=== PATIENT | male | born 1995 | race Two or more races ===

== ENCOUNTER 2018-11-13 15:09 | Emergency (ER) | payer BC ==
[2018-11-13 15:27] VITALS: BP 127/77; PULSE 85; TEMP 99.1; BMI 26.2
--- NOTE | 2018-11-13 15:29 | PDOC ---
Rapid Medical Evaluation Time Seen by Provider: 11/13/18 15:22 Medical Evaluation: Allergies Allergy/AdvReac Type Severity Reaction Status Date / Time No Known Allergies Allergy Verified 01/02/14 19:17 11/13/18 15:23 I have performed a brief in-person evaluation of this patient. The patient presents with a chief complaint of: rectal pain/swelling following receptive anal sex 3 days ago, sexually active w/ males only. No sig pmhx Pertinent physical exam findings:stable I have ordered the following:nothing The patient will proceed to the ED for further evaluation. Discharge Disposition - Diagnosis Rectal pain - Referrals - Patient Instructions - Post Discharge Activity
--- NOTE | 2018-11-13 15:55 | PDOC ---
History of Present Illness - General Chief Complaint: Hemorrhoids Stated Complaint: RECTUM BLEEDING Time Seen by Provider: 11/13/18 15:22 - History of Present Illness Initial Comments: 11/13/18 15:53 23-year-old male without comorbidities presents for evaluation of rectal pain after anal sex with another male 4 days ago. Past History - Past Medical History Allergies/Adverse Reactions: Allergies Allergy/AdvReac Type Severity Reaction Status Date / Time No Known Allergies Allergy Verified 11/13/18 15:24 Home Medications: Ambulatory Orders No Home Medications 0 dose .ROUTE UTDICT 01/02/14 Hydrocortisone Acetate [Anusol Hc Suppository -] 25 mg RC BID #28 supp.rect COPD: No Thyroid Disease: No - Immunization History Immunization Up to Date: Yes - Suicide/Smoking/Psychosocial Hx Smoking History: Never smoked Information on smoking cessation initiated: No Hx Alcohol Use: No Drug/Substance Use Hx: No Review of Systems - Review of Systems ABD/GI: Yes: See HPI *Physical Exam - Vital Signs Last Vital Signs Temp Pulse Resp BP Pulse Ox 99.1 F 85 16 127/77 99 11/13/18 15:24 11/13/18 15:24 11/13/18 15:24 11/13/18 15:24 11/13/18 15:24 - Physical Exam Comments: 11/13/18 15:53 Rectal exam grossly performed. There is a hemorrhoid at the 12 o'clock position without indication of fissures or abrasions. Digital exam not performed Medical Decision Making - Medical Decision Making 11/13/18 15:54 Discussed abstinence from anal sex follow-up with GI in the use of Anusol hydrocortisone suppositories *DC/Admit/Observation/Transfer Diagnosis at time of Disposition: Rectal pain, Acute hemorrhoid - Discharge Dispostion Disposition: HOME Condition at time of disposition: Stable Decision to Admit order: No - Prescriptions Prescriptions: Hydrocortisone Acetate [Anusol Hc Suppository -] 25 mg RC BID #28 supp.rect - Referrals Referrals: Perez Salazar MD [Staff Physician] - - Patient Instructions Printed Discharge Instructions: DI for Hemorrhoids Additional Instructions: Please use a hemorrhoidal suppositories as directed twice a day and follow-up with gastroenterology in one to 2 days for further evaluation and treatment options. Abstain from anal sex until cleared by gastroenterology and return to the emergency room should symptoms worsen - Post Discharge Activity
== END 2018-11-13 16:10 | disposition home or self-care (01) ==
LOC: JERFT 15:09
DX: K62.89 Other specified diseases of anus and rectum (principal); K64.9 Unspecified hemorrhoids
CPT/HCPCS: 99281-25

== ENCOUNTER 2018-12-06 11:26 | Emergency (ER) | payer BC ==
[2018-12-06 11:44] VITALS: BP 114/66; PULSE 72; TEMP 97.2; BMI 25.0
--- NOTE | 2018-12-06 12:41 | PDOC ---
History of Present Illness - General Chief Complaint: Hemorrhoids Stated Complaint: REMOVAL OF HEMORRHOIDS Time Seen by Provider: 12/06/18 12:11 History Source: Patient Exam Limitations: No Limitations - History of Present Illness Initial Comments: Patient is a 23-year-old male who has a history of hemorrhoids who states that he was evaluated the end of October and was given Anusol and his hemorrhoids disappeared. However he states that they have returned x 2 days. He is requesting Anusol. Patient denies hematochezia. He denies history of constipation. Patient denies any aggravating or relieving factors. 12/06/18 12:38 Past History - Travel Traveled outside of the country in the last 30 days: No Close contact w/someone who was outside of country & ill: No - Past Medical History Allergies/Adverse Reactions: Allergies Allergy/AdvReac Type Severity Reaction Status Date / Time No Known Allergies Allergy Verified 12/06/18 11:39 Home Medications: Ambulatory Orders Hydrocortisone Acetate [Anusol Hc Suppository -] 25 mg RC BID #28 supp.rect COPD: No Thyroid Disease: No - Immunization History Immunization Up to Date: Yes - Suicide/Smoking/Psychosocial Hx Smoking History: Never smoked Information on smoking cessation initiated: No Hx Alcohol Use: No Drug/Substance Use Hx: No Review of Systems - Review of Systems Constitutional: No: Chills, Fever Respiratory: No: Cough Cardiac (ROS): No: Chest Pain ABD/GI: No: Abdominal Distended, Blood Streaked Bowels, Constipated, Diarrhea, Abdominal cramping *Physical Exam - Vital Signs Last Vital Signs Temp Pulse Resp BP Pulse Ox 97.2 F L 72 17 114/66 98 12/06/18 11:39 12/06/18 11:39 12/06/18 11:39 12/06/18 11:39 12/06/18 11:39 - Physical Exam Comments: Constitutional: VS stated, pt appears in no apparent distress; sitting in chair. Skin: Warm and dry. Intact, no lesions or excoriations. Head: Normocephalic; atraumatic Eyes: conjunctiva pink without injection or discharge. Throat: Oropharynx with pink and moist mucos Lungs: Bilateral breath sounds clear upon auscultation. Heart: Regular rate and rhythm, S1/S2 auscultated. Abdomen: Soft and non-tender. Bowel sounds present in all 4 quadrants, no hepatosplenomegaly, No bruits auscultated. Musculoskeletal: Moves all extremities without difficulty. Neurologic: Awake, alert. Conversation fluent Rectal: 1.5 cm hemorrhoid TEJA Edouard was my motorman/woman during the rectal exam 12/06/18 12:40 *DC/Admit/Observation/Transfer Diagnosis at time of Disposition: Hemorrhoid Qualifiers: Hemorrhoid type: first degree Qualified Code(s): K64.0 - First degree hemorrhoids - Discharge Dispostion Disposition: HOME Condition at time of disposition: Good - Prescriptions Prescriptions: Hydrocortisone Acetate [Anusol Hc Suppository -] 25 mg RC BID #28 supp.rect - Referrals Referrals: Norma Mir MD [Primary Care Provider] - Eric Bass MD [Staff Physician] - - Patient Instructions - Post Discharge Activity
== END 2018-12-06 13:15 | disposition home or self-care (01) ==
LOC: JERFT 11:26
DX: K64.0 First degree hemorrhoids (principal)
CPT/HCPCS: 99281-25

== ENCOUNTER 2020-12-12 17:57 | Emergency (ER) | payer BC ==
[2020-12-12 18:07] VITALS: BP 126/72; PULSE 112; TEMP 102.4; BMI 22.7
[2020-12-12] MEDS ORDERED: ACETAMINOPHEN 500 MG TABLET (FP) PO ONE (18:28)
[2020-12-12] MEDS ORDERED: ACETAMINOPHEN 500 MG TABLET (FP) ONE (18:29)
[2020-12-12] MEDS ORDERED: DEXAMETHASONE LIQUID 0.5 MG/5 ML PO ONE (18:48)
[2020-12-12] MEDS ORDERED: DEXAMETHASONE SOD PHOSPHATE 10 MG/1 ML VIAL ONE (18:48)
== END 2020-12-12 19:02 | disposition home or self-care (01) ==
LOC: JER 17:57
DX: U07.1 COVID-19 (principal); J03.90 Acute tonsillitis, unspecified; J02.9 Acute pharyngitis, unspecified
CPT/HCPCS: 99283-25

== ENCOUNTER 2021-09-05 06:36 | Observation (INO) | payer BC ==
[2021-09-05 08:27] LABS: BASO % 1.3 % (0-2.0); EOS % 8.3 % (0-4.5); HEMATOCRIT 26.8 % (35.4-49); LYMPH % 42.7 % (8-40); MCH 27.8 pg (25.7-33.7); MCHC 33.5 g/dl (32.0-35.9); MEAN CELL VOLUME 83.1 fl (80-96); MEAN PLT VOLUME 6.6 fl (7.5-11.1); MONO % 9.7 % (3.8-10.2); PLATELET COUNT 55 10^3/uL (134-434); RBC 3.22 M/mm3 (4.00-5.60)
[2021-09-05 09:13] LABS: CHLORIDE 115 mmol/L (98-107); SODIUM 139 mmol/L (136-145)
[2021-09-05 09:15] LABS: ANION GAP 5 MMOL/L (8-16); BLOOD UREA NITROGEN 11.3 mg/dL (7-18); CO2 19 mmol/L (21-32); GLUCOSE,RANDOM 74 mg/dL (74-106)
[2021-09-05 09:18] LABS: CREATININE 0.7 mg/dL (0.55-1.3); SGOT/AST 13 U/L (15-37)
[2021-09-05 09:19] LABS: SGPT/ALT 9 U/L (13-61)
[2021-09-05 09:20] LABS: BILIRUBIN,TOTAL 0.2 mg/dL (0.2-1)
[2021-09-05 09:21] LABS: ALK PHOS 52 U/L (45-117)
[2021-09-05 09:28] LABS: CALCIUM 6.1 mg/dL (8.5-10.1); TOT PROT 7.4 g/dl (6.4-8.2)
[2021-09-05] MEDS ORDERED: CALCIUM GLUCONATE 10% - 1,000 MG/10 ML VIAL IVPUSH ONE (09:38)
[2021-09-05] MEDS ORDERED: POTASSIUM CHLORIDE TABS 20 MEQ TABLET.ER (FP) PO ONE ×2 (09:41→09:45)
[2021-09-05] MEDS ORDERED: CALCIUM GLUCONATE 10% - 1,000 MG/10 ML VIAL ONE (09:44)
[2021-09-05 09:49] LABS: EPI CELLS 3 /uL (0-25.1); HYALINE CASTS 1 /uL (0-3.1); PH,URINE 5.5 (5.0-8.0); URINE APPEARANCE CLEAR; URINE BILIRUBIN NEGATIVE (NEGATIVE); URINE COLOR YELLOW; URINE GLUCOSE (UA) NEGATIVE (NEGATIVE); URINE KETONE TRACE (NEGATIVE); URINE LEUK ESTERASE NEGATIVE (NEGATIVE); URINE NITRITE NEGATIVE (NEGATIVE); URINE PROTEIN TRACE (NEGATIVE); URINE UROBILINOGEN 0.2 mg/dL (0.2-1.0); URINE WBC 5 /uL (0-25.8)
[2021-09-05 09:51] LABS: URINE BACTERIA 6.1 /uL (0-1359)
[2021-09-05 09:58] LABS: MAGNESIUM 1.4 mg/dL (1.8-2.4)
[2021-09-05 10:02] LABS: PHOSPHOROUS 3.3 mg/dL (2.5-4.9)
[2021-09-05] MEDS ORDERED: MAGNESIUM SULF 50% (8.12 MEQ/2 ML-1 GM VIAL) IVPB ONE (10:22)
[2021-09-05] MEDS ORDERED: MAGNESIUM 1GM/D5W - 1 GM/100 ML IVPB IVPB ONE (10:50)
[2021-09-05 11:10] LABS: ANISOCYTOSIS 2+; MACROCYTOSIS 2+; PLATELET ESTIMATE DECREASED
[2021-09-05] MEDS ORDERED: ONDANSETRON 4 MG/2 ML VIAL IVPUSH PRN (15:37)
[2021-09-05] MEDS ORDERED: ACETAMINOPHEN 325 MG TABLET (FP) PO PRN (15:39)
[2021-09-05 20:58] VITALS: BMI 24.2
[2021-09-06] MEDS ORDERED: SULFAMETHOXAZOLE/TRIMETHOPRIM 800MG/160MG D.S. TABLET PO SCH (10:00)
[2021-09-06] MEDS: BICTEGRAV/EMTRICIT/TENOFOV (BIKTARVY) 50-200-25 MG TABLET PO SCH (10:26)
[2021-09-06 11:45] LABS: HEMATOCRIT 25.9 % (35.4-49); HEMOGLOBIN 8.8 GM/dL (11.7-16.9); MEAN CELL VOLUME 82.5 fl (80-96); MEAN PLT VOLUME 7.1 fl (7.5-11.1); PLATELET COUNT 50 10^3/uL (134-434); RBC 3.14 M/mm3 (4.00-5.60); WHITE BLOOD COUNT 3.5 K/mm3 (4.0-10.0)
[2021-09-06 12:10] LABS: BLOOD UREA NITROGEN 14.5 mg/dL (7-18)
[2021-09-06 12:13] LABS: BILIRUBIN,TOTAL 0.5 mg/dL (0.2-1); CREATININE 0.9 mg/dL (0.55-1.3); TOT PROT 9.2 g/dl (6.4-8.2)
[2021-09-06 12:15] LABS: ALBUMIN 2.5 g/dl (3.4-5.0); CALCIUM 8.2 mg/dL (8.5-10.1)
[2021-09-07] MEDS ORDERED: ATOVAQUONE 750 MG/5 ML (UNIT-DOSE PACKAGING) PO SCH (08:00)
[2021-09-07 09:31] LABS: BASO % 2.4 % (0-2.0); EOS % 6.1 % (0-4.5); HEMATOCRIT 27.3 % (35.4-49); HEMOGLOBIN 9.3 GM/dL (11.7-16.9); LYMPH % 41.3 % (8-40); MCHC 34.1 g/dl (32.0-35.9); MEAN CELL VOLUME 82.1 fl (80-96); MEAN PLT VOLUME 6.5 fl (7.5-11.1); MONO % 11.2 % (3.8-10.2); PLATELET COUNT 52 10^3/uL (134-434); RBC 3.32 M/mm3 (4.00-5.60); RDW 16.3 % (11.9-15.9)
[2021-09-07 09:40] LABS: INR 1.21 (0.83-1.09)
[2021-09-07 09:53] LABS: BLOOD UREA NITROGEN 12.8 mg/dL (7-18)
[2021-09-07 09:54] LABS: ALBUMIN 2.4 g/dl (3.4-5.0)
[2021-09-07 09:58] LABS: BILIRUBIN,TOTAL 0.6 mg/dL (0.2-1); TOT PROT 9.5 g/dl (6.4-8.2)
[2021-09-07] MEDS: BICTEGRAV/EMTRICIT/TENOFOV (BIKTARVY) 50-200-25 MG TABLET PO SCH (10:58)
[2021-09-07 11:32] LABS: ERYTHROCYTE SEDIMENTATION RATE 117 mm/hr (0-10)
[2021-09-07] MEDS ORDERED: CYANOCOBALAMIN (VITAMIN B-12) 1000 MCG/1 ML VIAL SQ SCH ×2 (14:45→16:00)
[2021-09-07 15:48] VITALS: BP 108/58; PULSE 92; TEMP 97.9
== END 2021-09-07 18:27 | disposition home or self-care (01) ==
LOC: JER 06:36 → JERBED 13:57 → J6S 20:21
PROVIDERS: ADMIT Internal Medicine; ATTEND Internal Medicine
PROC: 3E033GC Introduction of Other Therapeutic Substance into Peripheral Vein, Percutaneous Approach (ICD-10-PCS; principal; 2021-09-05)
PROC: 3E023GC Introduction of Other Therapeutic Substance into Muscle, Percutaneous Approach (ICD-10-PCS; 2021-09-05)
DX: B20 Human immunodeficiency virus [HIV] disease (principal); C46.0 Kaposi's sarcoma of skin; R21 Rash and other nonspecific skin eruption; R59.1 Generalized enlarged lymph nodes; D69.6 Thrombocytopenia, unspecified; N50.89 Other specified disorders of the male genital organs; Z86.19 Personal history of other infectious and parasitic diseases; K62.5 Hemorrhage of anus and rectum
CPT/HCPCS: 36415; 76870-TC; 76942-TC; 80053; 81003; 82607; 82728; 82747; 82784; 83615; 83735; 84100; 84155; 84165; 84439; 84443; 85014; 85025; 85027; 85384; 85610; 85651; 85730; 86140; 86334; 86593; 86780; 86850; 86900; 86901; 87086; 87491; 87591; 87899; 88305-TC; 93306-TC; 99285-25; C9803; G0378; U0003; U0005

== ENCOUNTER 2022-04-02 16:32 | Emergency (ER) | payer BC ==
[2022-04-02 16:49] VITALS: TEMP 98.2; BMI 25.0
[2022-04-02 18:52] LABS: BASO % 0.5 % (0-2.0); HEMATOCRIT 36.8 % (35.4-49); MCH 29.8 pg (25.7-33.7); MCHC 35.3 g/dl (32.0-35.9); MEAN CELL VOLUME 84.5 fl (80-96); MEAN PLT VOLUME 5.9 fl (7.5-11.1); MONO % 7.9 % (3.8-10.2); NEUT % 73.6 % (42.8-82.8); PLATELET COUNT 236 10^3/uL (134-434); RBC 4.35 M/mm3 (4.00-5.60); RDW 14.2 % (11.9-15.9); WHITE BLOOD COUNT 7.7 K/mm3 (4.0-10.0)
[2022-04-02 19:16] LABS: BLOOD UREA NITROGEN 14.8 mg/dL (7-18); CALCIUM 8.2 mg/dL (8.5-10.1)
[2022-04-02 19:20] LABS: CREATININE 1.3 mg/dL (0.55-1.3)
[2022-04-02 19:21] LABS: BILIRUBIN,TOTAL 0.5 mg/dL (0.2-1); TOT PROT 7.8 g/dl (6.4-8.2)
[2022-04-02 20:25] VITALS: BP 107/70; PULSE 68; RESP 20
== END 2022-04-02 20:26 | disposition home or self-care (01) ==
LOC: JER 16:32
DX: N50.89 Other specified disorders of the male genital organs (principal); C46.9 Kaposi's sarcoma, unspecified
CPT/HCPCS: 36415; 80053; 83735; 85025; 99283-25; C9803-CS; U0003; U0005

== ENCOUNTER 2022-04-06 07:13 | Emergency (ER) | payer BC ==
[2022-04-06 07:45] VITALS: BP 132/68; PULSE 72; RESP 17; TEMP 98.4; BMI 26.3
[2022-04-06 09:28] LABS: URINE APPEARANCE CLEAR; URINE BILIRUBIN NEGATIVE (NEGATIVE); URINE COLOR YELLOW; URINE GLUCOSE (UA) NEGATIVE (NEGATIVE); URINE KETONE NEGATIVE (NEGATIVE); URINE LEUK ESTERASE NEGATIVE (NEGATIVE); URINE NITRITE NEGATIVE (NEGATIVE); URINE PROTEIN NEGATIVE (NEGATIVE)
== END 2022-04-06 10:16 | disposition home or self-care (01) ==
LOC: JER 07:13
DX: C46.9 Kaposi's sarcoma, unspecified (principal)
CPT/HCPCS: 36415; 81003; 87086; 87491; 87591; 87593; 87661; 99283-25

== ENCOUNTER 2024-06-08 21:18 | Emergency (ER) | payer OTHER ==
[2024-06-08 21:29] VITALS: BP 166/63; PULSE 89; RESP 20; TEMP 97.7; BMI 29.4
[2024-06-08 22:17] LABS: HEMATOCRIT 28.2 % (35.4-49); HEMOGLOBIN 9.1 GM/dL (11.7-16.9); MCH 26.1 pg (25.7-33.7); MCHC 32.1 g/dl (32.0-35.9); MEAN CELL VOLUME 81.3 fl (80-96); MEAN PLT VOLUME 6.6 fl (7.5-11.1); PLATELET COUNT 191 10^3/uL (134-434); RBC 3.47 M/mm3 (4.00-5.60); RDW 19.8 % (11.9-15.9); WHITE BLOOD COUNT 2.9 K/mm3 (4.0-10.0)
[2024-06-08 22:35] LABS: POTASSIUM 3.8 mmol/L (3.5-5.1)
[2024-06-08 22:37] LABS: ALBUMIN 1.9 g/dl (3.4-5.0); BLOOD UREA NITROGEN 14.9 mg/dL (7-18)
[2024-06-08 22:42] LABS: BILIRUBIN,TOTAL 0.1 mg/dL (0.2-1); TOT PROT 6.6 g/dl (6.4-8.2)
[2024-06-09 09:58] LABS: HIV INTERPRETATION PRESUMPTIVE POSITIVE (NEGATIVE)
== END 2024-06-08 23:40 | disposition home or self-care (01) ==
LOC: JER 21:18
DX: D64.9 Anemia, unspecified (principal); R42 Dizziness and giddiness; R53.1 Weakness
CPT/HCPCS: 36415; 80053; 85027; 86803; 86850; 86900; 86901; 87389; 99283-25